=== PATIENT | female | born 1995 | race Caucasian/White ===

== ENCOUNTER 2020-10-14 20:25 | Outpatient (REF) | payer BC, SELFPAY ==
[2020-10-16 15:54] LABS: COVID-19 RT-PCR UVMMC Result Positive (Negative)
== END 2020-10-14 20:26 | disposition home or self-care (01) ==
LOC: LBN 20:25
PROVIDERS: PCP Nurse Practitioner Family; Visit Provider Nurse Practitioner Family
DX: Z20.822 Contact with and (suspected) exposure to COVID-19 (principal); J01.90 Acute sinusitis, unspecified
CPT/HCPCS: U0003